=== PATIENT | male | born 1945 | race Caucasian/White ===

== ENCOUNTER 2018-06-08 14:08 | Inpatient (IN) | payer MEDICAID, MEDICARE, OTHER ==
[~2018-06-08] VITALS: Ht 180.3 cm; Wt 83.5 kg
[~2018-06-08 14:08] MED LIST: BUSPAR10 MG PO; COLACE100 MG PO; DEPAKOTE250 MG PO; FLOMAX0.4 MG PO; FLONASE1 SPRAYS; NORVASC5 MG PO; SENOKOT1 TAB PO
--- NOTE | 2018-06-08 14:22 | Emergency Room Report ---
History of Present Illness General Chief Complaint: Dizziness Source: Patient, Medical Record Present Illness HPI Patient's a 72-year-old male who presented after increased dizziness and difficulty with ambulation. Patient had prior history of brain surgery secondary to aneurysm. The patient had been taking blood thinners. He denies recent trauma. Patient had been brought in by EMS. He takes clopidogrel. Patient not been having any fever. Patient presented increased hesitancy with urination as well as increased urinary frequency. The patient is followed by Dr. Holley Allergies: Coded Allergies: No Known Allergies (Unverified , 08/29/12) Patient History Past Medical History: see triage record Reviewed Nursing Documentation: PMH: Agreed; PSxH: Agreed Nursing Documentation-PMH Past Medical History: No History, Except For Hx Hypertension: Yes Hx Asthma: No - BPH, ANEURYSM, HEAD TRAUMA 2012 Review of Systems All Other Systems: negative except mentioned in HPI Physical Exam Vital Signs Date Time Temp Pulse Resp B/P (MAP) Pulse Ox O2 Delivery O2 Flow Rate FiO2 06/08/18 14:06 98.1 60 18 104/66 99 Room Air Sp02 EP Interpretation: reviewed, normal General Appearance: normal inspection, well appearing, no apparent distress, alert, GCS 15 Head: other - small defect to right frontal skin with metal implant exposed about 0.5 cm Eyes: bilateral eye PERRL ENT: normal ENT inspection, hearing grossly normal, normal voice Neck: normal inspection, full range of motion, supple, no bony tend Respiratory: normal inspection, lungs clear, normal breath sounds, no respiratory distress, no retraction, no wheezing Cardiovascular #1: regular rate, rhythm, no edema Gastrointestinal: normal inspection, normal bowel sounds, non tender, soft, no guarding, no hernia Genitourinary: no CVA tenderness Musculoskeletal: normal inspection, back normal, normal range of motion Neurologic: normal inspection, alert, oriented x3, responsive, pm head cook III-XII nml as tested, speech normal, other - shuffling gait Psychiatric: normal inspection, judgement/insight normal, mood/affect normal Skin: normal inspection, normal color, no rash Medical Decision Making Diagnostic Impression: Primary Impression: Dizziness Additional Impressions: COGNOS TM1 DEVELOPER (ventriculoperitoneal) shunt status Encephalomalacia ER Course patient presented for dizziness. Differential diagnosis included but not limited to urinary tract infection, anemia, arrhythmia, abdominal aortic aneurysm, CVA, subarachnoid hemorrhage, benign positional vertigo.Because of complexity of patient's case laboratory testing and imaging studies were ordered.EKG interpreted by me showed normal sinus rhythm with rate is [address] or T wave changes. A CT the head read by radiology showed mild hydrocephalus as well as a ventriculoperitoneal shunt and mild atrophy. There is right frontal encephalomalacia. The laboratory testing was unremarkable. CT the abdomen pelvis read by radiology showed fusiform aortic aneurysm, gallbladder stones as well as ventriculoperitoneal shunt without evident surrounding fluid. Dr. Ishaan Martinez was contacted for inpatient management due to complexity of patient's case Labs Test 06/08/18 14:45 White Blood Count 7.6 K/UL (4.8-10.8) Red Blood Count 4.47 M/UL (4.70-6.10) Hemoglobin 14.1 G/DL (14.2-18.0) Hematocrit 41.6 % (42.0-52.0) Mean Corpuscular Volume 93 FL (80-99) Mean Corpuscular Hemoglobin 31.4 PG (27.0-31.0) Mean Corpuscular Hemoglobin Concent 33.8 G/DL (32.0-36.0) Red Cell Distribution Width 12.8 % (11.6-14.8) Platelet Count 219 K/UL (150-450) Mean Platelet Volume 6.2 FL (6.5-10.1) Neutrophils (%) (Auto) 64.7 % (45.0-75.0) Lymphocytes (%) (Auto) 21.3 % (20.0-45.0) Monocytes (%) (Auto) 11.0 % (1.0-10.0) Eosinophils (%) (Auto) 2.2 % (0.0-3.0) Basophils (%) (Auto) 0.8 % (0.0-2.0) Prothrombin Time 10.4 SEC (9.30-11.50) Prothromb Time International Ratio 1.0 (0.9-1.1) Activated Partial Thromboplast Time 28 SEC (23-33) Urine Color Yellow Urine Appearance Slightly cloudy Urine pH 7 (4.5-8.0) Urine Specific Davis 1.010 (1.005-1.035) Urine Protein Negative (NEGATIVE) Urine Glucose (UA) Negative (NEGATIVE) Urine Ketones Negative (NEGATIVE) Urine Blood 2+ (NEGATIVE) Urine Nitrite Negative (NEGATIVE) Urine Bilirubin Negative (NEGATIVE) Urine Urobilinogen Normal MG/DL (0.0-1.0) Urine Leukocyte Esterase 1+ (NEGATIVE) Urine RBC 2-4 /HPF (0 - 0) Urine WBC 0-2 /HPF (0 - 0) Urine Squamous Epithelial Cells None /LPF (NONE/OCC) Urine Bacteria Occasional /HPF (NONE) Urine Mucus Few /LPF (NONE/OCC) Sodium Level 144 MMOL/L (136-145) Potassium Level 4.0 MMOL/L (3.5-5.1) Chloride Level 106 MMOL/L (98-107) Carbon Dioxide Level 27 MMOL/L (21-32) Anion Gap 11 mmol/L (5-15) Blood Urea Nitrogen 17 mg/dL (7-18) Creatinine 0.9 MG/DL (0.55-1.30) Estimat Glomerular Filtration Rate mL/min (>60) Glucose Level 80 MG/DL (74-106) Calcium Level 8.7 MG/DL (8.5-10.1) Total Bilirubin 0.4 MG/DL (0.2-1.0) Aspartate Amino Transf (AST/SGOT) 19 U/L (15-37) Alanine Aminotransferase (ALT/SGPT) 34 U/L (12-78) Alkaline Phosphatase 71 U/L (46-116) Troponin I 0.000 ng/mL (0.000-0.056) Total Protein 6.6 G/DL (6.4-8.2) Albumin 3.2 G/DL (3.4-5.0) Globulin 3.4 g/dL Albumin/Globulin Ratio 0.9 (1.0-2.7) Thyroid Stimulating Hormone (TSH) 1.007 uiU/mL (0.358-3.740) EKG Diagnostic Results Rate: normal Rhythm: NSR - 57 ST Segments: no acute changes Last Vital Signs Date Time Temp Pulse Resp B/P (MAP) Pulse Ox O2 Delivery O2 Flow Rate FiO2 06/08/18 14:13 61 18 Room Air 06/08/18 14:06 98.1 104/66 99 Status: unchanged Disposition: ADMITTED INPATIENT Condition: Stable Sunday Mcleod MD Jun 08, 2018 14:22
[2018-06-08] MEDS ORDERED: Meclizine 25mg tab ORAL ONE (14:30)
[2018-06-08] MEDS ORDERED: SENNA LAXATIVE8.6 MG PO (14:35)
[2018-06-08] MEDS ORDERED: NAMENDA5 MG ORAL (14:35)
[2018-06-08] MEDS ORDERED: PROSCAR5 MG ORAL (14:35)
[2018-06-08] MEDS ORDERED: MI ACID SUSPEN355 M1 PO (14:35)
[2018-06-08] MEDS ORDERED: CLOPIDOGREL75 MG ORAL (14:35)
[2018-06-08] MEDS ORDERED: ATORVASTATIN CA20 MG ORAL (14:35)
[2018-06-08] MEDS ORDERED: ASPIR 8181 MG ORAL (14:35)
[2018-06-08 14:50] VITALS: BP 121/67
[2018-06-08 15:04] LABS: BASOPHILS % (AUTO) 0.8 % (0.0-2.0); BILIRUBIN, URINE NEGATIVE (NEGATIVE); EOSINOPHILS % (AUTO) 2.2 % (0.0-3.0); GLUCOSE, URINE (UA) NEGATIVE (NEGATIVE); HEMATOCRIT 41.6 % (42.0-52.0); HEMOGLOBIN 14.1 G/DL (14.2-18.0); KETONES,URINE NEGATIVE (NEGATIVE); LEUKOCYTE ESTERASE ,URINE 1+ (NEGATIVE); LYMPHOCYTES % (AUTO) 21.3 % (20.0-45.0); MEAN CORPUSCULAR VOLUME 93 FL (80-99); NEUTROPHILS % (AUTO) 64.7 % (45.0-75.0); NITRITE,URINE NEGATIVE (NEGATIVE); PH,URINE 7 (4.5-8.0); PLATELET COUNT 219 K/UL (150-450); PROTEIN,URINE NEGATIVE (NEGATIVE); RED BLOOD COUNT 4.47 M/UL (4.70-6.10); RED CELL DISTRIBUTION WIDTH 12.8 % (11.6-14.8); UROBILINOGEN,URINE NORMAL MG/DL (0.0-1.0); WHITE BLOOD COUNT 7.6 K/UL (4.8-10.8)
[2018-06-08 15:07] LABS: APPEARANCE,URINE SLIGHTLY CLOUDY; COLOR,URINE YELLOW
[2018-06-08 15:12] LABS: ANION GAP 11 mmol/L (5-15); BLOOD UREA NITROGEN 17 mg/dL (7-18); CALCIUM 8.7 MG/DL (8.5-10.1); CARBON DIOXIDE 27 MMOL/L (21-32); CHLORIDE 106 MMOL/L (98-107); CREATININE 0.9 MG/DL (0.55-1.30); SODIUM 144 MMOL/L (136-145)
[2018-06-08 15:25] LABS: ALANINE AMINOTRANSFERASE 34 U/L (12-78); ALBUMIN 3.2 G/DL (3.4-5.0); ALBUMIN/GLOBULIN RATIO 0.9 (1.0-2.7); ALKALINE PHOSPHATASE 71 U/L (46-116); ASPARTATE AMINO TRANSFERASE 19 U/L (15-37); BILIRUBIN,TOTAL 0.4 MG/DL (0.2-1.0)
[2018-06-08] MEDS ORDERED: Isovue-300 100ml vial INJ PRN (16:00)
--- NOTE | 2018-06-08 16:03 | Diagnostic Imaging Report ---
Indications: Dizziness and difficulty walking Technique: Spiral acquisitions obtained through the brain. Angled axial and coronal 5 x 5 mm slices were reconstructed. Total dose length product 2539.71 mGycm. CTDI vol(s) 70.38,70.38 mGy. Dose reduction achieved using automated exposure control Comparison: None. Findings: There is a right supraclinoid aneurysm clip. There is a right frontotemporal parietal craniotomy/craniectomy defect. Tubing of left frontal ventriculoperitoneal shunt enters through the left frontal bone, traverses the frontal lobe, tip projected like with within the third ventricle. There is mild prominence of the ventricles. There is also prominence of the extra-axial CSF spaces. There is encephalomalacia of the inferior right frontal lobe. An extra-axial membrane is seen subjacent to the craniotomy/craniectomy on the right. No acute intercranial hemorrhage nor edema. No mass effect nor midline shift. There is minimal periventricular deep white matter low-attenuation; otherwise normal lock-white differentiation. Visualized orbits and sinuses are unremarkable. Impression: No evidence of acute intracranial bleed or mass effect. Evidence of right supraclinoid aneurysm clipping. Left frontal ventriculostomy/ventricular peritoneal shunt Mild ventriculomegaly despite the above. Suspect on the basis of central atrophy, although shunt dysfunction cannot be completely excluded Evidence of cortical volume loss as well Right inferior frontal encephalomalacia, consistent with prior ischemia or trauma Minimal periventricular deep white matter low-attenuation, consistent with chronic ischemic change The CT scanner at [facility] is accredited by the [employer] and the scans are performed using protocols designed to limit radiation exposure to as low as reasonably achievable to attain images of sufficient resolution adequate for diagnostic evaluation.
[2018-06-08 16:50] VITALS: BP 111/66
--- NOTE | 2018-06-08 16:53 | Diagnostic Imaging Report ---
Clinical Indication: Abdominal pain Technique: No oral contrast utilized, per emergency room physician request IV administration nonionic contrast. Venous phase spiral acquisition obtained through the abdomen and pelvis. Multiplanar reconstructions were generated. Total dose length product 784.79 mGycm. CTDIvol(s) 14.12 mGy. Dose reduction achieved using automated exposure control Comparison: none Findings: The appendix is normal. There is colonic diverticulosis. No evidence of diverticulitis. No small bowel distention. No free or loculated intraperitoneal gas or fluid is evident. The distal esophagus, stomach, duodenum are unremarkable. There is slight increased attenuation of the fat of the mesenteric root and a few prominent lymph nodes. Gallbladder is nondistended, contains a tiny gallstone. No biliary ductal dilatation. The liver demonstrates a cyst within segment 8, is otherwise unremarkable. The pancreas, spleen, adrenals are unremarkable. The right kidney demonstrates borderline hydronephrosis and a prominent extrarenal pelvis. There is questionably a subtle tiny focus, under 2 mm, but increased attenuation in the distal right ureter, and a sliver of increased attenuation at or adjacent to the right ureteral orifice. There is mild left hydronephrosis versus left renal parapelvic cysts. There is a 3 mm left lower pole calyceal calculus. The left ureter is normal in caliber, and demonstrates no evidence of ureteral calculi. The bladder demonstrates a small posterior diverticulum on the right. No retroperitoneal or mesenteric mass or adenopathy. No pelvic mass or adenopathy. There is a fusiform abdominal aortic aneurysm with a small amount of mural thrombus. This measures up to 3.3 mm transverse and 3.4 mm AP. No evidence of leakage or rupture. The included lung bases demonstrate posterior dependent atelectatic changes. The bones are unremarkable. Impression: Slight increased density of the upper mesenteric root with prominent lymph nodes, consistent with mesenteric inflammation, nonspecific as regards etiology. Minimal right hydronephrosis. Very questionable (doubtful) distal ureteral calculus or calculi could be radiology, but absence of hydroureter suggest mild congenital ureteropelvic junction obstruction Mild left hydronephrosis versus parapelvic cysts mimicking hydronephrosis. No evidence of ureteral obstruction so if hydronephrosis possibly on the basis of mild congenital ureteropelvic junction obstruction as well Nonobstructive 3 mm left lower pole renal cyst 3.3 x 3.4 cm fusiform infrarenal abdominal aortic aneurysm. No evidence of leakage or rupture Small bladder diverticulum, likely indicating chronic bladder outlet obstruction Cholelithiasis Colonic diverticulosis. No evidence of diverticulitis The CT scanner at [facility] is accredited by the [employer] and the scans are performed using protocols designed to limit radiation exposure to as low as reasonably achievable to attain images of sufficient resolution adequate for diagnostic evaluation.
[2018-06-08 18:05] VITALS: BP 114/75
[2018-06-08 20:00] VITALS: BP 123/77
[2018-06-08] MEDS ORDERED: ACETAMINOPHEN325 M1 ORAL (20:08)
[2018-06-08] MEDS ORDERED: Docusate 100mg cap ORAL PRN (20:15)
[2018-06-08] MEDS ORDERED: Sennosides 8.6mg ORAL PRN (20:15)
[2018-06-08] MEDS: Memantine 5 MG TAB ORAL SCH (21:30)
[2018-06-09] VITALS: BP 121/73
--- NOTE | 2018-06-09 03:01 | History and Physical Report ---
DATE OF ADMISSION: 06/08/2018 HISTORY OF PRESENT ILLNESS: The patient is being admitted for dizziness, difficulty walking, status post fall, ataxia, history of fall, has history of aneurysm and seizure disorder, has a history of GLASS WORKER shunt, needs to rule out hydrocephalus as well. CT scan showed mild hydrocephalus, left atrophy, and GLASS WORKER shunt in place from encephalomalacia. The patient has been admitted for weakness, status post fall as well as abdominal pain. The patient denies nausea, vomiting, diarrhea. . PAST MEDICAL HISTORY: Significant for seizure disorder, GLASS WORKER shunt, hyperlipidemia, CAD, constipation, BPH, and organic brain syndrome. PAST SURGICAL HISTORY: GLASS WORKER shunt. ALLERGIES: No known allergies. MEDICATIONS: Aspirin, Lipitor, Plavix, Colace, finasteride, Namenda, and Senokot. FAMILY HISTORY: Noncontributory. SOCIAL HISTORY: Denies alcohol or illicit drugs. Currently, lives in assisted living. REVIEW OF SYSTEMS: HEENT: Denies headaches. RESPIRATORY: Denies shortness of breath. Denies cough. CARDIOVASCULAR: No chest pain. GASTROINTESTINAL: Denies nausea, vomiting, or diarrhea. [employer] BACON TIER: He reports some slight dizziness, difficulty ambulation, ataxia, and history of falls. ASSESSMENT AND PLAN: Ataxia, history of falls, history of aneurysms and seizures, and abdominal pain. CT shows also diverticulosis, mild hydronephrosis as well as GLASS WORKER shunt in place, and mild hydrocephalus. I have asked Dr. Mccollum, Dr. Kunz, and Dr. Roberts to see the patient for the abdominal pain and rule out stroke. Ishaan Holley M.D. DR: JOCELYNE JOB#: [id number] CC:
[2018-06-09 04:00] VITALS: BP 122/68
[2018-06-09 05:20] LABS: BASOPHILS % (AUTO) 0.6 % (0.0-2.0); EOSINOPHILS % (AUTO) 2.5 % (0.0-3.0); HEMOGLOBIN 14.7 G/DL (14.2-18.0); MEAN CORPUSCULAR VOLUME 92 FL (80-99); MONOCYTES % (AUTO) 9.8 % (1.0-10.0); NEUTROPHILS % (AUTO) 61.2 % (45.0-75.0); PLATELET COUNT 215 K/UL (150-450); RED BLOOD COUNT 4.69 M/UL (4.70-6.10); RED CELL DISTRIBUTION WIDTH 12.2 % (11.6-14.8); WHITE BLOOD COUNT 6.6 K/UL (4.8-10.8)
[2018-06-09 05:38] LABS: ALANINE AMINOTRANSFERASE 33 U/L (12-78); ALBUMIN 3.2 G/DL (3.4-5.0); ALBUMIN/GLOBULIN RATIO 0.9 (1.0-2.7); ALKALINE PHOSPHATASE 62 U/L (46-116); ANION GAP 10 mmol/L (5-15); ASPARTATE AMINO TRANSFERASE 18 U/L (15-37); BILIRUBIN,TOTAL 0.6 MG/DL (0.2-1.0); BLOOD UREA NITROGEN 13 mg/dL (7-18); CALCIUM 8.9 MG/DL (8.5-10.1); CARBON DIOXIDE 27 MMOL/L (21-32); CHLORIDE 107 MMOL/L (98-107); CREATININE 0.8 MG/DL (0.55-1.30); POTASSIUM 3.7 MMOL/L (3.5-5.1); SODIUM 144 MMOL/L (136-145)
[2018-06-09 08:00] VITALS: BP 126/66
[2018-06-09] MEDS: Aspirin EC 81mg tab ORAL SCH (08:17)
--- NOTE | 2018-06-09 10:45 | Consultation ---
DATE OF CONSULTATION: 06/09/2018 GASTROENTEROLOGY CONSULTATION CONSULTING PHYSICIAN: Ibrahima Roberts M.D. REFERRING PHYSICIAN: Ishaan Holley M.D. CHIEF COMPLAINT: Abdominal pain. HISTORY OF PRESENT ILLNESS: This is a very pleasant 72-year-old male with history of ruptured brain aneurysm about 2 years ago. He had a craniotomy at that time. According to him, he was in coma for 2-1/2 months and since then, he has been living in a board and care. He was admitted to the hospital mainly for abdominal pain which has resolved now. The patient denies any nausea, vomiting, dysphagia, or odynophagia. No melena no hematochezia. Last colonoscopy many years ago. Last BM yesterday, nonbloody, normal. PAST MEDICAL HISTORY: History of a ruptured brain aneurysm requiring craniotomy, otherwise no any other medical problems. PAST SURGICAL HISTORY: Craniotomy. ALLERGIES: No known drug allergies. MEDICATIONS: Currently, the patient is on Plavix. SOCIAL HISTORY: He smokes about half a pack of cigarettes a day. No alcohol or IV drug abuse. FAMILY HISTORY: Noncontributory. REVIEW OF SYSTEMS: A 10-point review of systems was performed and pertinent positives are in HPI. PHYSICAL EXAMINATION: GENERAL: A well-developed male in no acute distress. VITAL SIGNS: Temperature 97.9, pulse . HEENT: Sclerae anicteric. NECK: Supple. No evidence of lymphadenopathy. CARDIOVASCULAR: Regular rhythm. Plus S1 and S2. LUNGS: Clear to auscultation bilaterally. ABDOMEN: Positive bowel sounds. Soft, nontender. No rebound. No guarding. No peritoneal sign. EXTREMITIES: No cyanosis. No clubbing. No edema. LABORATORY DATA: White count 6.6, hemoglobin 14, hematocrit 42, platelets of 215,000. ASSESSMENT AND PLAN: This is a 72-year-old male with nonspecific abdominal pain. He does have results. CT showed multiple findings including diverticulosis not active, gallbladder, gallstones, abdominal aneurysm. At this time, from GI standpoint, there is not much to do. The patient is on regular diet, tolerating it, and moving his bowels. The patient will need an outpatient followup for colonoscopy. I gave him my card having to follow up in my office, otherwise at this time, we are going to just monitor him, monitor his laboratories and follow up. I want to thank Dr. Ishaan Holley for this kind referral. Ibrahima Roberts M.D. DR: Andrew JOB#: [id number] CC: Ishaan Holley M.D.; Fax#: [phone]
[2018-06-09 11:57] VITALS: BP 123/72
[2018-06-09 16:00] VITALS: BP 113/67
--- NOTE | 2018-06-09 17:50 | Consultation ---
Consult Note Consult Note HEMATOLOGY-ONCOLOGY CONSULTATION REFERRING PHYSICIAN: Ishaan Holley M.D. DATE OF CONSULTATION: 06/09/2018 REASON FOR CONSULTATION: Evaluation of lymphadenopathy HISTORY OF PRESENT ILLNESS: This is a very pleasant 72-year-old male with history of ruptured brain aneurysm about 2 years ago. He had a craniotomy at that time. According to him, he was in coma for 2-1/2 months and since then, he has been living in a board and care. He was admitted to the hospital mainly for abdominal pain which has resolved now. The patient denies any nausea, vomiting, dysphagia, or odynophagia. No melena no hematochezia. Last colonoscopy many years ago. Oncology services consulted for further evaluation of lymphadenopathy. Labs and imaging have been reviewed. PAST MEDICAL HISTORY: History of a ruptured brain aneurysm requiring craniotomy , otherwise no any other medical problems. PAST SURGICAL HISTORY: Craniotomy. ALLERGIES: No known drug allergies. MEDICATIONS: Currently, the patient is on Plavix. SOCIAL HISTORY: He smokes about half a pack of cigarettes a day. No alcohol or IV drug abuse. FAMILY HISTORY: Noncontributory. REVIEW OF SYSTEMS: A 10-point review of systems was performed and pertinent positives are in HPI. PHYSICAL EXAMINATION: GENERAL: A well-developed male in no acute distress. VITAL SIGNS: Reviewed. HEENT: Sclerae anicteric. NECK: Supple. No evidence of lymphadenopathy. CARDIOVASCULAR: Regular rhythm. Plus S1 and S2. LUNGS: Clear to auscultation bilaterally. ABDOMEN: Positive bowel sounds. Soft, nontender. No rebound. No guarding. No peritoneal sign. EXTREMITIES: No cyanosis. No clubbing. No edema. LABORATORY DATA: White count 6.6, hemoglobin 14, hematocrit 42, platelets of 215,000. ASSESSMENT AND RECOMMENDATIONS # Lymphadenopathy -- CT abd/pelvis: Slight increased density of the upper mesenteric root with prominent lymph nodes, consistent with mesenteric inflammation, nonspecific as regards etiology. Minimal right hydronephrosis. Very questionable (doubtful) distal ureteral calculus or calculi could be radiology, but absence of hydroureter suggest mild congenital ureteropelvic junction obstruction. Mild left hydronephrosis versus parapelvic cysts mimicking hydronephrosis. No evidence of ureteral obstruction so if hydronephrosis possibly on the basis of mild congenital ureteropelvic junction obstruction as well. Nonobstructive 3 mm left lower pole renal cyst. 3.3 x 3.4 cm fusiform infrarenal abdominal aortic aneurysm. No evidence of leakage or rupture. Small bladder diverticulum, likely indicating chronic bladder outlet obstruction. Cholelithiasis. Colonic diverticulosis. No evidence of diverticulitis --> Tumor markers have been ordered. --> ct a/p repeat in 6 months --> spep and upep ordered # Abd pain. GI is following, appreciate recs. --> The patient is on regular diet, tolerating it, and moving his bowels. The patient will need an outpatient followup for colonoscopy. I gave him my card having to follow up in my office, otherwise at this time, we are going to just monitor him, monitor his laboratories and follow up. # Ataxia GREATLY APPRECIATE THE CONSULTATION : Roe Lofton MD Jun 09, 2018 17:50
[2018-06-09 20:00] VITALS: BP 122/73
[2018-06-09] MEDS: Memantine 5 MG TAB ORAL SCH (20:13)
--- NOTE | 2018-06-09 21:16 | General Progress Note ---
Assessment/Plan Problem List: (1) Generalized weakness ICD Codes: R53.1 - Weakness SNOMED: 17387545 (2) Encephalomalacia ICD Codes: G93.89 - Other specified disorders of brain SNOMED: 15222458 (3) Dizziness ICD Codes: R42 - Dizziness and giddiness SNOMED: 035306196, 419048214 Status: progressing Assessment/Plan ataxia dizzy afebrile vitals stable seizure decrease abd pain chronic diverticulosis Subjective ROS Limited/Unobtainable: Yes Allergies: Coded Allergies: No Known Allergies (Unverified , 08/29/12) Objective Last 24 Hour Vital Signs Date Time Temp Pulse Resp B/P (MAP) Pulse Ox O2 Delivery O2 Flow Rate FiO2 06/09/18 20:00 98.1 65 20 122/73 (89) 98 06/09/18 20:00 67 06/09/18 16:48 63 06/09/18 16:00 98.1 57 18 113/67 (82) 98 06/09/18 11:57 57 06/09/18 11:57 98.2 60 20 123/72 (89) 100 06/09/18 08:00 Room Air 06/09/18 08:00 98.1 65 20 126/66 (86) 100 06/09/18 07:53 61 06/09/18 04:00 97.9 49 19 122/68 (86) 95 06/09/18 04:00 57 06/09/18 00:00 54 06/09/18 00:00 97.1 56 19 121/73 (89) 99 Intake and Output 06/08/18 06/09/18 19:00 07:00 Intake Total 0 ml Balance 0 ml Intake Oral 0 ml # Voids 2 # Bowel Movements 1 Laboratory Tests 06/09/18 04:50: White Blood Count 6.6, Red Blood Count 4.69L, Hemoglobin 14.7, Hematocrit 43.0, Mean Corpuscular Volume 92, Mean Corpuscular Hemoglobin 31.3H, Mean Corpuscular Hemoglobin Concent 34.1, Red Cell Distribution Width 12.2, Platelet Count 215, Mean Platelet Volume 5.7L, Neutrophils (%) (Auto) 61.2, Lymphocytes (%) (Auto) 26.0, Monocytes (%) (Auto) 9.8, Eosinophils (%) (Auto) 2.5, Basophils (%) (Auto ) 0.6, Sodium Level 144, Potassium Level 3.7, Chloride Level 107, Carbon Dioxide Level 27, Anion Gap 10, Blood Urea Nitrogen 13, Creatinine 0.8, Estimat Glomerular Filtration Rate , Glucose Level 89, Calcium Level 8.9, Total Bilirubin 0.6, Aspartate Amino Transf (AST/SGOT) 18, Alanine Aminotransferase ( ALT/SGPT) 33, Alkaline Phosphatase 62, Total Protein 6.6, Albumin 3.2L, Globulin 3.4, Albumin/Globulin Ratio 0.9L Height (Feet): 5 Height (Inches): 11.00 Weight (Pounds): 184 Neck: supple Respiratory/Chest: lungs clear Ishaan Holley MD Jun 09, 2018 21:16
--- NOTE | 2018-06-09 23:16 | Consultation ---
History of Present Illness General Chief Complaint: Dizziness Present Illness HPI 72-year-old male who presented after increased dizziness and difficulty with ambulation and history of brain surgery secondary to aneurysm. the pt has cognitive impairment and has anxiety otherwise he is stable and has no depressive manic sxs Allergies: Coded Allergies: No Known Allergies (Unverified , 08/29/12) Medication History Scheduled Aspirin* (Aspir 81*), 81 MG ORAL DAILY, (Reported) Atorvastatin Calcium* (Atorvastatin Calcium*), 10 MG ORAL BEDTIME, (Reported) Clopidogrel* (Clopidogrel*), 75 MG ORAL DAILY, (Reported) Finasteride* (Proscar*), 5 MG ORAL DAILY, (Reported) Memantine Hcl* (Namenda*), 5 MG ORAL DAILY, (Reported) Scheduled PRN Acetaminophen* (Acetaminophen 325MG Tablet*), 650 MG ORAL Q6H PRN for Mild Pain/ Temp > 100.5, (Reported) Docusate Sodium* (Colace*), 100 MG PO Q12HR PRN for Constipation, (Reported) Mag Hydrox/Al Hydrox/Simeth (Mi Acid Suspension), 30 ML PO Q6HR PRN for Gastritis, (Reported) Sennosides (Senna Laxative), 8.6 MG PO Q12HR PRN for Constipation, (Reported) Discontinued Medications Amlodipine Besylate (Norvasc), 5 MG PO DAILY, (Reported) Discontinued Reason: Pt stopped taking med Buspirone Hcl* (Buspar*), 10 MG PO BID, (Reported) Discontinued Reason: Pt stopped taking med Divalproex Sodium* (Depakote*), 250 MG PO Q12HR, (Reported) Discontinued Reason: Pt stopped taking med Fluticasone Propionate (Fluticasone Propionate), 1 SPRAYS NA DAILY, (Reported) Discontinued Reason: Pt stopped taking med Tamsulosin HCl (Flomax), 0.4 MG PO DAILY, (Reported) Discontinued Reason: Pt stopped taking med Patient History Limited by: medical condition History Provided By: Patient, Medical Record, PMD Healthcare decision maker self Resuscitation status Full Code Advanced Directive on File No Past Medical/Surgical History Past Medical/Surgical History: (1) Rash and other nonspecific skin eruption (2) Rash and other nonspecific skin eruption (3) Encephalomalacia (4) Dizziness (5) Generalized weakness Review of Systems Psychiatric: Reports: prior hx, anxiety, depressed feelings, emotional problems Physical Exam General Appearance: no apparent distress, alert Neurologic: alert, oriented x 3, depressed affect Last 24 Hour Vital Signs Date Time Temp Pulse Resp B/P (MAP) Pulse Ox O2 Delivery O2 Flow Rate FiO2 06/09/18 21:00 Room Air 06/09/18 20:00 98.1 65 20 122/73 (89) 98 06/09/18 20:00 67 06/09/18 16:48 63 06/09/18 16:00 98.1 57 18 113/67 (82) 98 06/09/18 11:57 57 06/09/18 11:57 98.2 60 20 123/72 (89) 100 06/09/18 08:00 Room Air 06/09/18 08:00 98.1 65 20 126/66 (86) 100 06/09/18 07:53 61 06/09/18 04:00 97.9 49 19 122/68 (86) 95 06/09/18 04:00 57 06/09/18 00:00 54 06/09/18 00:00 97.1 56 19 121/73 (89) 99 Intake and Output 06/08/18 06/09/18 19:00 07:00 Intake Total 0 ml Balance 0 ml Intake Oral 0 ml # Voids 2 # Bowel Movements 1 Laboratory Tests Test 06/09/18 04:50 06/09/18 16:40 White Blood Count 6.6 K/UL (4.8-10.8) Red Blood Count 4.69 M/UL (4.70-6.10) L Hemoglobin 14.7 G/DL (14.2-18.0) Hematocrit 43.0 % (42.0-52.0) Mean Corpuscular Volume 92 FL (80-99) Mean Corpuscular Hemoglobin 31.3 PG (27.0-31.0) H Mean Corpuscular Hemoglobin Concent 34.1 G/DL (32.0-36.0) Red Cell Distribution Width 12.2 % (11.6-14.8) Platelet Count 215 K/UL (150-450) Mean Platelet Volume 5.7 FL (6.5-10.1) L Neutrophils (%) (Auto) 61.2 % (45.0-75.0) Lymphocytes (%) (Auto) 26.0 % (20.0-45.0) Monocytes (%) (Auto) 9.8 % (1.0-10.0) Eosinophils (%) (Auto) 2.5 % (0.0-3.0) Basophils (%) (Auto) 0.6 % (0.0-2.0) Sodium Level 144 MMOL/L (136-145) Potassium Level 3.7 MMOL/L (3.5-5.1) Chloride Level 107 MMOL/L (98-107) Carbon Dioxide Level 27 MMOL/L (21-32) Anion Gap 10 mmol/L (5-15) Blood Urea Nitrogen 13 mg/dL (7-18) Creatinine 0.8 MG/DL (0.55-1.30) Estimat Glomerular Filtration Rate mL/min (>60) Glucose Level 89 MG/DL (74-106) Calcium Level 8.9 MG/DL (8.5-10.1) Total Bilirubin 0.6 MG/DL (0.2-1.0) Aspartate Amino Transf (AST/SGOT) 18 U/L (15-37) Alanine Aminotransferase (ALT/SGPT) 33 U/L (12-78) Alkaline Phosphatase 62 U/L (46-116) Total Protein 6.6 G/DL (6.4-8.2) Albumin 3.2 G/DL (3.4-5.0) L Globulin 3.4 g/dL Albumin/Globulin Ratio 0.9 (1.0-2.7) L Pending Total Protein (PEP) Pending Albumin (PEP) Pending Globulin (PEP) Pending Loboh-6-Jazumnthw Pending Dpnup-1-Olqmrjthr Pending Beta Globulins Pending Beta Gamma Globulin Pending PEP Abnormal Protein Bands Pending Protein Electrophoresis Interpret Pending Carcinoembryonic Antigen Pending CA 19-9 Antigen Pending Height (Feet): 5 Height (Inches): 11.00 Weight (Pounds): 184 Medications Current Medications Medications (Trade) Dose Ordered Sig/Mile Route PRN Reason Start Time Stop Time Status Last Admin Dose Admin Acetaminophen (Tylenol) 650 mg Q4H PRN ORAL Mild Pain/Temp > 100.5 06/08/18 20:15 07/08/18 20:14 Al Hydroxide/Mg Hydroxide (Mylanta) 30 ml Q6H PRN ORAL Gastritis/Dyspepsia 10/26/18 20:15 07/08/18 20:14 Aspirin (Ecotrin) 81 mg DAILY ORAL 06/09/18 09:00 07/09/18 08:59 06/09/18 08:17 Atorvastatin Calcium (Lipitor) 10 mg BEDTIME ORAL 06/08/18 21:00 07/08/18 20:59 06/09/18 20:13 Clopidogrel Bisulfate (Plavix) 75 mg DAILY ORAL 06/09/18 09:00 07/09/18 08:59 06/09/18 08:17 Docusate Sodium (Colace) 100 mg Q12H PRN ORAL Constipation 06/08/18 20:15 07/08/18 20:14 06/09/18 20:13 Finasteride (Proscar) 5 mg BEDTIME ORAL 06/08/18 21:00 07/08/18 20:59 06/09/18 20:13 Iopamidol (Isovue-300 100ml) 100 ml NOW PRN INJ Radiology Procedure 06/08/18 16:00 Memantine (Namenda) 5 mg BEDTIME ORAL 06/08/18 21:00 07/08/18 20:59 06/09/18 20:13 Sennosides (Senokot) 1 tab Q12H PRN ORAL Constipation 06/08/18 20:15 07/08/18 20:14 06/09/18 20:13 Assessment/Plan Problem List: (1) Generalized weakness ICD Codes: R53.1 - Weakness SNOMED: 60876062 (2) Anxiety ICD Codes: F41.9 - Anxiety disorder, unspecified SNOMED: 41501048 Assessment/Plan ativan prn provided ro/Meera Cruz MD Jun 09, 2018 23:15
--- NOTE | 2018-06-09 23:16 | General Progress Note ---
Assessment/Plan Assessment/Plan (1) Generalized weakness ICD Codes: R53.1 - Weakness SNOMED: 26444604 (2) Anxiety ICD Codes: F41.9 - Anxiety disorder, unspecified SNOMED: 76282802 Assessment/Plan ativan prn provided ro/st Subjective Date patient seen: Jun 09, 2018 Neurologic/Psychiatric: Reports: anxiety, depressed, emotional problems Allergies: Coded Allergies: No Known Allergies (Unverified , 08/29/12) Objective Last 24 Hour Vital Signs Date Time Temp Pulse Resp B/P (MAP) Pulse Ox O2 Delivery O2 Flow Rate FiO2 06/09/18 21:00 Room Air 06/09/18 20:00 98.1 65 20 122/73 (89) 98 06/09/18 20:00 67 06/09/18 16:48 63 06/09/18 16:00 98.1 57 18 113/67 (82) 98 06/09/18 11:57 57 06/09/18 11:57 98.2 60 20 123/72 (89) 100 06/09/18 08:00 Room Air 06/09/18 08:00 98.1 65 20 126/66 (86) 100 06/09/18 07:53 61 06/09/18 04:00 97.9 49 19 122/68 (86) 95 06/09/18 04:00 57 06/09/18 00:00 54 06/09/18 00:00 97.1 56 19 121/73 (89) 99 Intake and Output 06/08/18 06/09/18 19:00 07:00 Intake Total 0 ml Balance 0 ml Intake Oral 0 ml # Voids 2 # Bowel Movements 1 Laboratory Tests 06/09/18 04:50: White Blood Count 6.6, Red Blood Count 4.69L, Hemoglobin 14.7, Hematocrit 43.0, Mean Corpuscular Volume 92, Mean Corpuscular Hemoglobin 31.3H, Mean Corpuscular Hemoglobin Concent 34.1, Red Cell Distribution Width 12.2, Platelet Count 215, Mean Platelet Volume 5.7L, Neutrophils (%) (Auto) 61.2, Lymphocytes (%) (Auto) 26.0, Monocytes (%) (Auto) 9.8, Eosinophils (%) (Auto) 2.5, Basophils (%) (Auto ) 0.6, Sodium Level 144, Potassium Level 3.7, Chloride Level 107, Carbon Dioxide Level 27, Anion Gap 10, Blood Urea Nitrogen 13, Creatinine 0.8, Estimat Glomerular Filtration Rate , Glucose Level 89, Calcium Level 8.9, Total Bilirubin 0.6, Aspartate Amino Transf (AST/SGOT) 18, Alanine Aminotransferase ( ALT/SGPT) 33, Alkaline Phosphatase 62, Total Protein 6.6, Albumin 3.2L, Globulin 3.4, Albumin/Globulin Ratio 0.9L 06/09/18 16:40: Albumin/Globulin Ratio [Pending], Total Protein (PEP) [Pending], Albumin (PEP) [ Pending], Globulin (PEP) [Pending], Ssgyf-1-Vsaxqisgq [Pending], Alpha-2- Globulins [Pending], Beta Globulins [Pending], Beta Gamma Globulin [Pending], PEP Abnormal Protein Bands [Pending], Protein Electrophoresis Interpret [Pending ], Carcinoembryonic Antigen [Pending], CA 19-9 Antigen [Pending] Height (Feet): 5 Height (Inches): 11.00 Weight (Pounds): 184 General Appearance: no apparent distress, alert Neurologic: oriented x 3, responsive, depressed affect Meera Mccollum MD Jun 09, 2018 23:16
[2018-06-10] VITALS (7 sets, daily range): BP systolic 105–124; BP diastolic 53–75
--- NOTE | 2018-06-10 07:55 | General Progress Note ---
Assessment/Plan Problem List: (1) Generalized weakness ICD Codes: R53.1 - Weakness SNOMED: 66384271 (2) Dizziness ICD Codes: R42 - Dizziness and giddiness SNOMED: 818483176, 980452914 (3) NURSERY WORKER (ventriculoperitoneal) shunt status ICD Codes: Z98.2 - Presence of cerebrospinal fluid drainage device SNOMED: 270830770, 08208390, 60952028 Assessment/Plan no abd pain tolerating diet no anemia no elevated LFTS needs out patient fu for screening colonoscopy Subjective ROS Limited/Unobtainable: Yes Allergies: Coded Allergies: No Known Allergies (Unverified , 08/29/12) Subjective no event over night Objective Last 24 Hour Vital Signs Date Time Temp Pulse Resp B/P (MAP) Pulse Ox O2 Delivery O2 Flow Rate FiO2 06/10/18 04:00 98.2 58 20 106/53 (70) 97 06/10/18 04:00 55 06/10/18 00:00 98.2 59 20 109/59 (76) 97 06/10/18 00:00 57 06/09/18 21:00 Room Air 06/09/18 20:00 98.1 65 20 122/73 (89) 98 06/09/18 20:00 67 06/09/18 16:48 63 06/09/18 16:00 98.1 57 18 113/67 (82) 98 06/09/18 11:57 57 06/09/18 11:57 98.2 60 20 123/72 (89) 100 06/09/18 08:00 Room Air 06/09/18 08:00 98.1 65 20 126/66 (86) 100 Intake and Output 06/09/18 06/10/18 19:00 07:00 Intake Total 720 ml 240 ml Balance 720 ml 240 ml Intake Oral 720 ml 240 ml # Voids 4 3 # Bowel Movements 1 Laboratory Tests 06/09/18 16:40: Total Protein (PEP) [Pending], Albumin (PEP) [Pending], Globulin (PEP) [Pending] , Albumin/Globulin Ratio [Pending], Hjztz-6-Kgdwtnwsu [Pending], Alpha-2- Globulins [Pending], Beta Globulins [Pending], Beta Gamma Globulin [Pending], PEP Abnormal Protein Bands [Pending], Protein Electrophoresis Interpret [Pending ], Carcinoembryonic Antigen [Pending], CA 19-9 Antigen [Pending] Height (Feet): 5 Height (Inches): 11.00 Weight (Pounds): 184 General Appearance: alert EENT: normal ENT inspection Neck: supple Cardiovascular: normal rate Respiratory/Chest: lungs clear Abdomen: normal bowel sounds, non tender, soft Extremities: non-tender Ibrahima Roberts MD Jun 10, 2018 07:55
[2018-06-10] MEDS: Aspirin EC 81mg tab ORAL SCH (08:26)
--- NOTE | 2018-06-10 18:11 | General Progress Note ---
Assessment/Plan Status: stable Assessment/Plan # Lymphadenopathy -- CT abd/pelvis: Slight increased density of the upper mesenteric root with prominent lymph nodes, consistent with mesenteric inflammation, nonspecific as regards etiology. Minimal right hydronephrosis. Very questionable (doubtful) distal ureteral calculus or calculi could be radiology, but absence of hydroureter suggest mild congenital ureteropelvic junction obstruction. Mild left hydronephrosis versus parapelvic cysts mimicking hydronephrosis. No evidence of ureteral obstruction so if hydronephrosis possibly on the basis of mild congenital ureteropelvic junction obstruction as well. Nonobstructive 3 mm left lower pole renal cyst. 3.3 x 3.4 cm fusiform infrarenal abdominal aortic aneurysm. No evidence of leakage or rupture. Small bladder diverticulum, likely indicating chronic bladder outlet obstruction. Cholelithiasis. Colonic diverticulosis. No evidence of diverticulitis --> Tumor markers have been ordered - pending --> CT a/p repeat in 6 months --> spep and upep ordered - pending # Abd pain. GI is following, appreciate recs. --> The patient is on regular diet, tolerating it, and moving his bowels. --> The patient will need an outpatient followup for colonoscopy. # Ataxia GREATLY APPRECIATE THE CONSULTATION Subjective Date patient seen: Jun 10, 2018 ROS Limited/Unobtainable: Yes Allergies: Coded Allergies: No Known Allergies (Unverified , 08/29/12) Subjective Pt awake and alert. No acute events. Afebrile. Objective Last 24 Hour Vital Signs Date Time Temp Pulse Resp B/P (MAP) Pulse Ox O2 Delivery O2 Flow Rate FiO2 06/10/18 16:00 97.7 72 16 109/58 (75) 100 06/10/18 12:00 97.3 60 16 116/66 (83) 100 06/10/18 11:44 58 06/10/18 08:00 Room Air 06/10/18 08:00 96.3 62 18 117/66 (83) 100 06/10/18 07:57 75 06/10/18 04:00 98.2 58 20 106/53 (70) 97 06/10/18 04:00 55 06/10/18 00:00 98.2 59 20 109/59 (76) 97 06/10/18 00:00 57 10/27/18 21:00 Room Air 06/09/18 20:00 98.1 65 20 122/73 (89) 98 06/09/18 20:00 67 Intake and Output 06/09/18 06/10/18 18:59 06:59 Intake Total 720 ml 240 ml Balance 720 ml 240 ml Intake Oral 720 ml 240 ml # Voids 4 3 # Bowel Movements 1 Height (Feet): 5 Height (Inches): 11.00 Weight (Pounds): 184 General Appearance: no apparent distress EENT: PERRL/EOMI Neck: normal alignment Cardiovascular: normal peripheral pulses Respiratory/Chest: no respiratory distress Abdomen: normal bowel sounds Roe Lofton MD Jun 10, 2018 18:11
[2018-06-10] MEDS ORDERED: Memantine 5 MG TAB ORAL SCH (21:00)
--- NOTE | 2018-06-10 21:00 | General Progress Note ---
Assessment/Plan Problem List: (1) Generalized weakness ICD Codes: R53.1 - Weakness SNOMED: 87988391 (2) Encephalomalacia ICD Codes: G93.89 - Other specified disorders of brain SNOMED: 78997983 (3) Dizziness ICD Codes: R42 - Dizziness and giddiness SNOMED: 086276447, 860016852 Status: progressing Assessment/Plan still weak and ataxic no sz seizure decrease abd pain chronic diverticulosis Subjective ROS Limited/Unobtainable: Yes Allergies: Coded Allergies: No Known Allergies (Unverified , 08/29/12) Objective Last 24 Hour Vital Signs Date Time Temp Pulse Resp B/P (MAP) Pulse Ox O2 Delivery O2 Flow Rate FiO2 06/10/18 20:05 97.4 63 18 124/75 (91) 98 06/10/18 20:00 97.3 66 20 105/70 (82) 99 06/10/18 16:00 97.7 72 16 109/58 (75) 100 06/10/18 16:00 62 06/10/18 12:00 97.3 60 16 116/66 (83) 100 06/10/18 11:44 58 06/10/18 08:00 Room Air 06/10/18 08:00 96.3 62 18 117/66 (83) 100 06/10/18 07:57 75 06/10/18 04:00 98.2 58 20 106/53 (70) 97 06/10/18 04:00 55 06/10/18 00:00 98.2 59 20 109/59 (76) 97 06/10/18 00:00 57 06/09/18 21:00 Room Air Intake and Output 06/09/18 06/10/18 19:00 07:00 Intake Total 720 ml 240 ml Balance 720 ml 240 ml Intake Oral 720 ml 240 ml # Voids 4 3 # Bowel Movements 1 Height (Feet): 5 Height (Inches): 11.00 Weight (Pounds): 184 Cardiovascular: normal peripheral pulses Respiratory/Chest: lungs clear Abdomen: soft Ishaan Holley MD Jun 10, 2018 21:00
[2018-06-10] MEDS ORDERED: Docusate 100mg cap ORAL PRN (21:16)
[2018-06-10] MEDS ORDERED: Sennosides 8.6mg ORAL PRN (21:17)
[2018-06-11] VITALS: BP 115/72
[2018-06-11 04:00] VITALS: BP 113/62
[2018-06-11 08:00] VITALS: BP 106/69
--- NOTE | 2018-06-11 08:33 | General Progress Note ---
Assessment/Plan Status: stable Assessment/Plan # Lymphadenopathy -- CT abd/pelvis: Slight increased density of the upper mesenteric root with prominent lymph nodes, consistent with mesenteric inflammation, nonspecific as regards etiology. Minimal right hydronephrosis. Very questionable (doubtful) distal ureteral calculus or calculi could be radiology, but absence of hydroureter suggest mild congenital ureteropelvic junction obstruction. Mild left hydronephrosis versus parapelvic cysts mimicking hydronephrosis. No evidence of ureteral obstruction so if hydronephrosis possibly on the basis of mild congenital ureteropelvic junction obstruction as well. Nonobstructive 3 mm left lower pole renal cyst. 3.3 x 3.4 cm fusiform infrarenal abdominal aortic aneurysm. No evidence of leakage or rupture. Small bladder diverticulum, likely indicating chronic bladder outlet obstruction. Cholelithiasis. Colonic diverticulosis. No evidence of diverticulitis --> Tumor markers have been ordered - pending --> CT a/p repeat in 6 months --> spep and upep ordered - pending # Abd pain. GI is following, appreciate recs. --> The patient is on regular diet, tolerating it, and moving his bowels. --> The patient will need an outpatient followup for colonoscopy. # Ataxia GREATLY APPRECIATE THE CONSULTATION Subjective Date patient seen: Jun 11, 2018 ROS Limited/Unobtainable: Yes Allergies: Coded Allergies: No Known Allergies (Unverified , 08/29/12) Subjective Pt awake and alert. No acute events. Afebrile. Objective Last 24 Hour Vital Signs Date Time Temp Pulse Resp B/P (MAP) Pulse Ox O2 Delivery O2 Flow Rate FiO2 06/11/18 04:00 97.2 57 18 113/62 (79) 99 06/11/18 00:00 97.4 63 18 115/72 (86) 97 06/10/18 21:00 Room Air 06/10/18 20:05 97.4 63 18 124/75 (91) 98 06/10/18 20:00 97.3 66 20 105/70 (82) 99 06/10/18 16:00 97.7 72 16 109/58 (75) 100 06/10/18 16:00 62 06/10/18 12:00 97.3 60 16 116/66 (83) 100 06/10/18 11:44 58 Intake and Output 06/10/18 06/11/18 19:00 07:00 Intake Total 850 ml 240 ml Output Total 300 ml Balance 850 ml -60 ml Intake Oral 850 ml 240 ml Output Urine Total 300 ml Laboratory Tests 06/11/18 02:00: Urine Total Volume 24 Hours [Pending], Urine Creatinine 24 Hour [Pending], Urine Total Protein Timed [Pending], Urine Protein/Creatinine Ratio [Pending], Urine Albumin (%) [Pending], Urine Koozo-8-Lhdzubwcv (%) [Pending], Urine Alpha- 2-Globulins (%) [Pending], Urine Beta-Globulin (%) [Pending], Urine Gamma Globulin (%) [Pending], Urine Protein Electrophoresis Intrp [Pending] Height (Feet): 5 Height (Inches): 11.00 Weight (Pounds): 184 General Appearance: no apparent distress EENT: PERRL/EOMI Neck: normal alignment Cardiovascular: bradycardia Respiratory/Chest: no respiratory distress Abdomen: normal bowel sounds Roe Lofton MD Jun 11, 2018 08:33
[2018-06-11] MEDS ORDERED: Aspirin EC 81mg tab ORAL SCH (09:00)
--- NOTE | 2018-06-11 10:36 | GI Progress Note ---
Assessment/Plan Problems: (1) Generalized weakness ICD Codes: R53.1 - Weakness SNOMED: 80484156 Status: stable Status Narrative Discussed with Dr. Roberts. Assessment/Plan CT P reviewed >> showed multiple findings including diverticulosis not active, gallbladder, gallstones, abdominal aneurysm. okay for DC per GI standpoint symptomatic treatment pain mgmt zofran prn regular diet, tolerating fu labs outpatient colonoscopy The patient was seen and examined at bedside and all new and available data was reviewed in the patients chart. I agree with the above findings, impression and plan. (Patient seen earlier today. Signature stamp does not reflect patient encounter time.). - Ibrahima Roberts MD Subjective Gastrointestinal/Abdominal: Reports: no symptoms Subjective wants to be discharged Objective Last 24 Hour Vital Signs Date Time Temp Pulse Resp B/P (MAP) Pulse Ox O2 Delivery O2 Flow Rate FiO2 06/11/18 04:00 97.2 57 18 113/62 (79) 99 06/11/18 00:00 97.4 63 18 115/72 (86) 97 06/10/18 21:00 Room Air 06/10/18 20:05 97.4 63 18 124/75 (91) 98 06/10/18 20:00 97.3 66 20 105/70 (82) 99 06/10/18 16:00 97.7 72 16 109/58 (75) 100 06/10/18 16:00 62 06/10/18 12:00 97.3 60 16 116/66 (83) 100 06/10/18 11:44 58 Intake and Output 06/10/18 06/11/18 19:00 07:00 Intake Total 850 ml 240 ml Output Total 300 ml Balance 850 ml -60 ml Intake Oral 850 ml 240 ml Output Urine Total 300 ml Laboratory Tests Test 06/11/18 02:00 Urine Total Volume 24 Hours Pending Urine Creatinine 24 Hour Pending Urine Total Protein Timed Pending Urine Protein/Creatinine Ratio Pending Urine Albumin (%) Pending Urine Oynjw-5-Zwzjqhbps (%) Pending Urine Rgyxx-9-Mnztjkefe (%) Pending Urine Beta-Globulin (%) Pending Urine Gamma Globulin (%) Pending Urine Protein Electrophoresis Intrp Pending Height (Feet): 5 Height (Inches): 11.00 Weight (Pounds): 184 General Appearance: WD/WN, no apparent distress, alert Cardiovascular: normal rate Respiratory/Chest: normal breath sounds, no respiratory distress Abdominal Exam: normal bowel sounds, non tender, soft Extremities: normal range of motion, non-tender Ritu Vinson NP Jun 11, 2018 10:36
[2018-06-11 12:00] VITALS: BP 124/77
--- NOTE | 2018-06-11 12:18 | Diagnostic Imaging Report ---
APPROVED REPORT CPT Code: 55490 Present Symptoms Lower Extremity Pain: Bilateral Comments: R/O DVT BILATERAL: Imaging reveals a patent deep venous system bilaterally. There is no evidence of thrombus within the femoral, popliteal or tibial segments. The greater saphenous veins are also within normal limits. Doppler indicates normal spontaneous flow within these segments.
--- NOTE | 2018-06-11 12:55 | General Progress Note ---
Assessment/Plan Status: stable Assessment/Plan (1) Generalized weakness ICD Codes: R53.1 - Weakness SNOMED: 97406463 (2) Anxiety ICD Codes: F41.9 - Anxiety disorder, unspecified SNOMED: 09376438 Assessment/Plan ativan prn provided ro/st Subjective Date patient seen: Jun 10, 2018 Neurologic/Psychiatric: Reports: anxiety, depressed Allergies: Coded Allergies: No Known Allergies (Unverified , 08/29/12) Subjective the pt is stable no agitation calm Objective Last 24 Hour Vital Signs Date Time Temp Pulse Resp B/P (MAP) Pulse Ox O2 Delivery O2 Flow Rate FiO2 06/11/18 09:00 Room Air 06/11/18 08:00 97.5 72 18 106/69 (81) 100 06/11/18 04:00 97.2 57 18 113/62 (79) 99 06/11/18 00:00 97.4 63 18 115/72 (86) 97 06/10/18 21:00 Room Air 06/10/18 20:05 97.4 63 18 124/75 (91) 98 06/10/18 20:00 97.3 66 20 105/70 (82) 99 06/10/18 16:00 97.7 72 16 109/58 (75) 100 06/10/18 16:00 62 Intake and Output 06/10/18 06/11/18 19:00 07:00 Intake Total 850 ml 240 ml Output Total 300 ml Balance 850 ml -60 ml Intake Oral 850 ml 240 ml Output Urine Total 300 ml Laboratory Tests 06/11/18 02:00: Urine Total Volume 24 Hours [Pending], Urine Creatinine 24 Hour [Pending], Urine Total Protein Timed [Pending], Urine Protein/Creatinine Ratio [Pending], Urine Albumin (%) [Pending], Urine Ygyyu-7-Lqynougja (%) [Pending], Urine Alpha- 2-Globulins (%) [Pending], Urine Beta-Globulin (%) [Pending], Urine Gamma Globulin (%) [Pending], Urine Protein Electrophoresis Intrp [Pending] Height (Feet): 5 Height (Inches): 11.00 Weight (Pounds): 184 General Appearance: no apparent distress, alert Meera Mccollum MD Jun 11, 2018 12:55
[2018-06-11 16:00] VITALS: BP 113/66
[2018-06-11] MEDS ORDERED: Isovue-300 100ml vial INJ PRN (16:00)
--- NOTE | 2018-06-11 19:51 | Psych Consult Progress Note ---
Psych Consult Progress Note Consult 06/11/18 Vital Signs Last 24 Hour Vital Signs Date Time Temp Pulse Resp B/P (MAP) Pulse Ox O2 Delivery O2 Flow Rate FiO2 06/11/18 16:00 97.6 67 18 113/66 (82) 99 06/11/18 12:00 97.4 68 18 124/77 (93) 99 06/11/18 09:00 Room Air 06/11/18 08:00 97.5 72 18 106/69 (81) 100 06/11/18 04:00 97.2 57 18 113/62 (79) 99 06/11/18 00:00 97.4 63 18 115/72 (86) 97 06/10/18 21:00 Room Air 06/10/18 20:05 97.4 63 18 124/75 (91) 98 06/10/18 20:00 97.3 66 20 105/70 (82) 99 Labs Laboratory Tests Test 06/11/18 02:00 Urine Total Volume 24 Hours Pending Urine Creatinine 24 Hour Pending Urine Total Protein Timed Pending Urine Protein/Creatinine Ratio Pending Urine Albumin (%) Pending Urine Fxfne-2-Uncrndipb (%) Pending Urine Fmszy-6-Hqwhhrlzt (%) Pending Urine Beta-Globulin (%) Pending Urine Gamma Globulin (%) Pending Urine Protein Electrophoresis Intrp Pending Medications Current Medications Medications (Trade) Dose Ordered Sig/Mile Route PRN Reason Start Time Stop Time Status Last Admin Dose Admin Acetaminophen (Tylenol) 650 mg Q4H PRN ORAL Mild Pain/Temp > 100.5 06/10/18 21:15 07/10/18 21:14 Al Hydroxide/Mg Hydroxide (Mylanta) 30 ml Q6H PRN ORAL Gastritis/Dyspepsia 06/10/18 21:17 07/10/18 21:16 Aspirin (Ecotrin) 81 mg DAILY ORAL 06/11/18 09:00 07/09/18 08:59 06/11/18 08:52 Atorvastatin Calcium (Lipitor) 10 mg BEDTIME ORAL 06/10/18 21:00 07/08/18 20:59 06/10/18 21:40 Clopidogrel Bisulfate (Plavix) 75 mg DAILY ORAL 06/11/18 09:00 07/09/18 08:59 06/11/18 08:52 Docusate Sodium (Colace) 100 mg Q12H PRN ORAL Constipation 06/10/18 21:16 07/10/18 21:15 Finasteride (Proscar) 5 mg BEDTIME ORAL 06/10/18 21:00 07/08/18 20:59 06/10/18 21:40 Memantine (Namenda) 5 mg BEDTIME ORAL 06/10/18 21:00 07/08/18 20:59 06/10/18 21:40 Sennosides (Senokot) 1 tab Q12H PRN ORAL Constipation 06/10/18 21:17 07/10/18 21:16 Problems: (1) Generalized weakness Status: Acute (2) Anxiety Status: Acute Assessment & Plan: (1) Generalized weakness ICD Codes: R53.1 - Weakness SNOMED: 30235253 (2) Anxiety ICD Codes: F41.9 - Anxiety disorder, unspecified SNOMED: 96593153 Assessment/Plan ativan prn provided charan/Meera Cruz MD Jun 11, 2018 19:51
--- NOTE | 2018-06-11 20:17 | General Progress Note ---
Assessment/Plan Problem List: (1) Generalized weakness ICD Codes: R53.1 - Weakness SNOMED: 30180300 (2) Encephalomalacia ICD Codes: G93.89 - Other specified disorders of brain SNOMED: 40024235 (3) Dizziness ICD Codes: R42 - Dizziness and giddiness SNOMED: 864325007, 238775301 Status: progressing Assessment/Plan still weak and ataxic' dc to snf for pt/ot see dc summary for details no sz seizure decrease abd pain chronic diverticulosis Subjective ROS Limited/Unobtainable: Yes Allergies: Coded Allergies: No Known Allergies (Unverified , 08/29/12) Objective Last 24 Hour Vital Signs Date Time Temp Pulse Resp B/P (MAP) Pulse Ox O2 Delivery O2 Flow Rate FiO2 06/11/18 16:00 97.6 67 18 113/66 (82) 99 06/11/18 12:00 97.4 68 18 124/77 (93) 99 06/11/18 09:00 Room Air 06/11/18 08:00 97.5 72 18 106/69 (81) 100 06/11/18 04:00 97.2 57 18 113/62 (79) 99 06/11/18 00:00 97.4 63 18 115/72 (86) 97 06/10/18 21:00 Room Air Intake and Output 06/10/18 06/11/18 18:59 06:59 Intake Total 850 ml 240 ml Output Total 300 ml Balance 850 ml -60 ml Intake Oral 850 ml 240 ml Output Urine Total 300 ml Laboratory Tests 06/11/18 02:00: Urine Total Volume 24 Hours [Pending], Urine Creatinine 24 Hour [Pending], Urine Total Protein Timed [Pending], Urine Protein/Creatinine Ratio [Pending], Urine Albumin (%) [Pending], Urine Qunpt-9-Xxrthcfap (%) [Pending], Urine Alpha- 2-Globulins (%) [Pending], Urine Beta-Globulin (%) [Pending], Urine Gamma Globulin (%) [Pending], Urine Protein Electrophoresis Intrp [Pending] Height (Feet): 5 Height (Inches): 11.00 Weight (Pounds): 184 Neck: normal alignment Cardiovascular: normal rate Respiratory/Chest: lungs clear Abdomen: soft Ishaan Holley MD Jun 11, 2018 20:17
--- NOTE | 2018-06-12 10:26 | Discharge Summary ---
Discharge Summary Discharge Summary _ DATE OF ADMISSION: 06/08/2018 DATE OF DISCHARGE: 06/11/2018 REASON FOR ADMISSION: 72 years old male with past medical history of hypertension, BPH, head trauma, status post brain surgery secondary to aneurysm, status post ventriculoperitoneal shunt, seizure disorder, presented to emergency department from assisted living with dizziness, unsteadiness with ambulation, status post recent fall ,and abdominal discomfort . Patient was on aspirin and Plavix. No recent head trauma. Patient denied fevers . Patient also reported urinary frequency and hesitation with urination. Upon evaluation vital signs were stable. Laboratory workup was unremarkable. Troponin was negative. TSH was within normal limits. Urinalysis revealed +1 leukocyte esterase, but no pyuria and occasional bacteria. CT of the head revealed no evidence of acute intracranial bleeding or mass effect. Evidence of right supraclinoid aneurysm clipping. Left frontal ventriculostomy/ventricular peritoneal shunt. Mild ventriculomegaly despite the shunt. Right inferior frontal encephalomalacia consistent with prior ischemia or trauma. Chronic ischemic changes. CT of the abdomen and pelvis revealed prominent lymph nodes, consistent with mesenteric inflammation , nonspecific as to etiology. Minimal right hydronephrosis and mild left hydronephrosis. 3.3 x 3.4 fusiform infrarenal abdominal aortic aneurysm. No evidence of leakage or rupture. Cholelithiasis. Colonic diverticulosis without evidence of diverticulitis. Small bladder diverticulum, likely indicating chronic bladder outlet obstruction. Patient admitted with diagnoses of ataxia, dizziness, ventriculoperitoneal shunt status, encephalomalacia, seizure disorder, history of brain aneurysm, abdominal pain. CONSULTANTS: GI specialist Dr. Roberts tile mechanic helper/oncologist Dr. Lofton psychiatrist [facility]: Patient admitted. Meclizine provided symptomatically. Fall precautions maintained. Patient was working with physical and occupational therapists. Antiplatelet therapy with aspirin and Plavix continued along with statin. Proscar was continued. Venous duplex bilateral lower extremity revealed no evidence of acute DVT. Oncologist seen and evaluated patient for mesenteric lymphadenopathy , present on the CT scan of the abdomen and pelvis. Tumor markers have been ordered and still pending. Oncologist recommended to repeat CT of the abdomen and pelvis in 6 months to follow-up with lymphadenopathy and aortic abdominal aneurysm. Serum and urine protein electrophoresis pending. Pain management was addressed and controlled. GI specialist closely followed. Per GI specialist, patient had no leukocytosis, no elevated liver enzymes, hemoglobin and hematocrit stable. GI specialist recommended outpatient screening colonoscopy. GI prophylaxis provided. Bowel regimen instituted. Psychiatrist seen and evaluated patient, diagnosed patient with anxiety. Reality orientation and supportive therapy provided. Seizure precautions maintained. No evidence of seizure activity while in the hospital. Patient require placement to the alf facility for skilled PT/OT services. Placement was found, and patient was subsequently discharged for continuation of care. FINAL DIAGNOSES: Encephalomalacia Ventriculoperitoneal shunt status Mesenteric lymphadenopathy Aortic abdominal aneurysm Seizure disorder History of brain aneurysm Anxiety DISCHARGE MEDICATIONS: See Medication Reconciliation list. DISCHARGE INSTRUCTIONS: Patient was discharged to the alf facility. Follow up with medical doctor at the facility. I have been assigned to dictate discharge summary for this account. I was not involved in the patient's management. Tresa Ferreira NP Jun 12, 2018 10:25
--- NOTE | 2018-06-12 18:29 | Cardiology Report ---
APPROVED REPORT EKG Measurement Heart [id number] Sinus bradycardia Septal infarct, age undetermined Abnormal ECG
== END 2018-06-11 19:55 | DRG 72 ==
LOC: EDBD 14:08 → EMR 14:31 → 2E 14:45 → EDBEDREQ 16:16 → 3E 06-10 21:10
DX: G93.89 Other specified disorders of brain (principal); K57.90 Diverticulosis of intestine, part unspecified, without perforation or abscess without bleeding; Z98.2 Presence of cerebrospinal fluid drainage device; R59.0 Localized enlarged lymph nodes; I71.4 Abdominal aortic aneurysm, without rupture; G40.909 Epilepsy, unspecified, not intractable, without status epilepticus; F41.9 Anxiety disorder, unspecified; R10.9 Unspecified abdominal pain; R27.0 Ataxia, unspecified; Z79.02 Long term (current) use of antithrombotics/antiplatelets; Z79.82 Long term (current) use of aspirin; F17.200 Nicotine dependence, unspecified, uncomplicated; Z98.890 Other specified postprocedural states; R53.1 Weakness; K80.20 Calculus of gallbladder without cholecystitis without obstruction; Z87.898 Personal history of other specified conditions; F09 Unspecified mental disorder due to known physiological condition
CPT/HCPCS: 36415; 70450; 74177; 80053; 81001; 81050; 82378; 82962; 84165; 84443; 84484; 85025; 85610; 85730; 86850; 86900; 86901; 87081; 93005; 93970; 99285